=== PATIENT | female | born 1970 | race African-American/Black ===

== ENCOUNTER 2020-07-13 20:22 | Emergency (ER) | payer BC, SELFPAY ==
--- NOTE | ~2020-07-13 | CT_ITS ---
EXAMINATION: CT abdomen pelvis wo con DATE: 07/13/2020 22:11 INDICATION: Right flank pain TECHNIQUE: Computed tomography (CT) of the abdomen and pelvis was performed without intravenous contr ast. Automated exposure control and iterative reconstruction technique were employed. Exam dose: 210 .49 mGy-cm total exam DLP. COMPARISON: None. FINDINGS: The lung bases are clear. Normal heart size. No pericardial or pleural effusion. A hypoattenuating approximately 1.7 cm rounded lesion is suggested at the dome of the liver. Elective repeat CT images with IV contrast material are recommended for further evaluation. The liver otherwi se appears unremarkable. No bile duct dilatation. The gallbladder is present but not as optimally osvaldo luated as it would be with ultrasound examination. Normal splenic size. No pancreatic mass lesion, calcification or ductal dilatation. Unremarkable adrenal glands. Normal caliber of the abdominal aorta. No intraperitoneal or retroperitoneal or pelvic mass lesion or adenopathy or ascites. The urinary bladder is unremarkable. Retroverted uterus. No adnexal mass lesi on is noted. No urinary tract calculus or hydroureteronephrosis is evident. The appendix appears to be normal. No inflammatory changes or abscess are identified. No bowel obstru ction, bowel wall thickening, pneumatosis or intraperitoneal free air. Approximately 9.3 cm sclerotic lesion of the right iliac bone, statistically most likely a bone islan d. Osteoarthritic changes at both hip joints. IMPRESSION: Indeterminate 1.7 cm hepatic dome lesion is suggested. Consider elective repeat CT exami nation with IV contrast material No urinary tract calculus or hydroureteronephrosis The appendix appears normal. Reviewed, dictated and finalized at [facility]. Reviewed, dictated and finalized at [facility]. IMPRESSION: Indeterminate 1.7 cm hepatic dome lesion is suggested. Consider el ective repeat CT examination with IV contrast material No urinary tract calculus or hydroureteronephrosis The appendix appears normal.
[2020-07-13 20:50] VITALS: BP 109/80; PULSE 100; RESP 18; TEMP 36; O2SAT 100
[2020-07-13 21:40] LABS: Add Urine Microscopic? YES; Appearance Urine Clear (Clear); Bilirubin Urine Negative (Negative); Blood Urine 2+ (Negative); Color Urine Yellow (Yellow); Glucose Urine UA Negative (Negative); Ketones Urine Trace mg/dL (Negative); Leukocyte Esterase Ur Trace LEU/UL (Negative); Mucus Urine Rare /lpf; Nitrate Urine Negative (Negative); Protein Urine Negative (Negative); Specific Grav Ur 1.029 (1.001-1.035); Squamous Epithelial Cell Urine Few /hpf (Few); Urobilinogen Urine Negative mg/dL (<2.0); WBC Urine 0-3 /hpf
--- NOTE | 2020-07-13 21:58 | ED.BACK ---
HPI - Back Pain/Injury General Chief Complaint: Back Pain/Injury Stated Complaint: severe back pain; break through bleeding Time Seen by Provider: 07/13/20 21:50 History of Present Illness HPI Narrative: Right flank and lower back pain for the past few weeks. Worse with lying on her right side. Associated with vaginal bleeding and urinary frequency, and hematuria. She recently began hormone therapy for menopause, but then stopped it due to the vaginal bleeding. Related Data Allergies Allergy/AdvReac Type Severity Reaction Status Date / Time Milk Containing Products AdvReac Severe Verified 12/27/16 09:25 soy AdvReac Severe Verified 12/27/16 09:25 Wheat AdvReac Severe Uncoded 12/27/16 09:25 Review of Systems Review of Systems: All systems reviewed & are unremarkable except as noted in HPI and below Constitutional: Constitutional: Denies fever(s) Cardiovascular: Cardiovascular: Denies chest pain Respiratory: Respiratory: Denies cough and Denies dyspnea Gastrointestinal: Gastrointestinal: Denies abdominal pain Genitourinary: Genitourinary: Reports hematuria, Reports nocturia, Denies dysuria and Reports flank pain Musculoskeletal: Musculoskeletal: Reports back pain Neurologic: Denies confusion, Denies numbness and Denies weakness PMFSH Social History Social History Gender identity (if verbalized by the patient): Female Exam Const: General: healthy appearing, no acute distress and alert Orientation/consciousness: patient oriented x3 HENMT: Head: normal to inspection Neck: Neck: normal visual inspection and no lymphadenopathy Chest: Chest palpation & inspection: no tenderness Resp: Effort & Inspection: normal respiratory effort Auscultation: clear to auscultation bilaterally, no rales, no rhonchi and no wheezes Cardio: Jugular venous distension: no JVD Rate: regular rate Rhythm: regular rhythm Heart sounds: no murmurs GI: Inspection: non-distended GI Palp: Yes Soft to palpation and No Tenderness to palpation present (GI) Back/Spine/Pelvis: Thoracic/Lumbar Spine: thoracic and lumbar spine normal to inspection and paraspinal muscle tenderness on the right Skin: General skin exam: normal color Neuro: General: patient oriented x3 and moves all extremities Speech: normal speech Extrem: General: no edema Psych: Appearance: well kempt Affect: normal affect Course Vital Signs Vital signs: Vital Signs Temperature 36.0 C L 07/13/20 20:50 Pulse Rate 100 07/13/20 20:50 Respiratory Rate 18 07/13/20 20:50 Blood Pressure 109/80 07/13/20 20:50 Pulse Oximetry 100 07/13/20 20:50 Temperature 36.0 C L 07/13/20 20:50 Pulse Rate 75 07/13/20 22:47 Respiratory Rate 19 07/13/20 22:47 Blood Pressure 115/70 07/13/20 22:47 Pulse Oximetry 98 07/13/20 22:47 MDM - Back Pain/Injury Medical Records Attestation: I reviewed the patient's medical records. Lab Data Attestation: I reviewed the patient's lab results. Result diagrams: 07/13/20 21:56 07/13/20 22:29 Labs: Lab Results 07/13/20 07/13/20 07/13/20 Range/Units 21:16 21:56 22:29 WBC 7.6 (4.5-10.0) K/mm3 RBC 4.58 (4.2-5.4) M/mm3 Hgb 13.5 (12.0-15.0) g/dL Hct 40.4 (37.0-47.0) % MCV 88.2 (80-100) fl MCH 29.5 (26-34) pg MCHC 33.4 (32-36) g/dl RDW 14.7 H (11.5-14.5) % Plt Count 208 (150-375) k/mm3 MPV 10.7 H (7.4-10.4) fl Immature Gran % (Auto) 0.3 (0-0.5) % Neut % (Auto) 48.5 (45.5-73.1) % Lymph % (Auto) 40.2 (18.3-44.2) % Lucas % (Auto) 5.8 (2.6-8.5) % Eos % (Auto) 4.4 (0-4.4) % Baso % (Auto) 0.8 (0.2-1.2) % Lymph # (Auto) 3.04 (0.9-3.2) K/mm3 Lucas # (Auto) 0.4 (0.1-0.6) K/mm3 Eos # (Auto) 0.3 (0-0.3) K/mm3 Baso # (Auto) 0.1 (0.0-0.1) K/mm3 Abs Immat Gran (auto) 0.02 (0.00-0.031) K/mm3 Absolute Neuts (auto) 3.7 (1.3-6.7) K/m
[2020-07-13 22:14] LABS: Basophils Absolute Auto 0.1 K/mm3 (0.0-0.1); Basophils Percent Auto 0.8 % (0.2-1.2); Eosinophils Absolute Auto 0.3 K/mm3 (0-0.3); Eosinophils Percent Auto 4.4 % (0-4.4); Hematocrit 40.4 % (37.0-47.0); Hemoglobin 13.5 g/dL (12.0-15.0); Immature Granulocyte Absolute 0.02 K/mm3 (0.00-0.031); Immature Granulocyte Percent A 0.3 % (0-0.5); Lymphocytes Absolute Auto 3.04 K/mm3 (0.9-3.2); Lymphocytes Percent Auto 40.2 % (18.3-44.2); Mean Corpuscular HGB Conc 33.4 g/dl (32-36); Mean Corpuscular Hemoglobin 29.5 pg (26-34); Mean Corpuscular Volume 88.2 fl (80-100); Mean Platelet Volume 10.7 fl (7.4-10.4); Monocytes Absolute Auto 0.4 K/mm3 (0.1-0.6); Monocytes Percent Auto 5.8 % (2.6-8.5); Neutrophils Absolute Auto 3.7 K/mm3 (1.3-6.7); Neutrophils Percent Auto 48.5 % (45.5-73.1); Platelet Count Result 208 k/mm3 (150-375); Red Blood Count 4.58 M/mm3 (4.2-5.4); Red Cell Distribution Width 14.7 % (11.5-14.5); White Blood Count 7.6 K/mm3 (4.5-10.0)
[2020-07-13 22:17] VITALS: BP 146/98; PULSE 64; RESP 19; O2SAT 98
[2020-07-13] MEDS: KETOROLAC 30 MG/ML VIAL (*BKC) IV PUSH (22:33)
[2020-07-13] MEDS: METOCLOPRAMIDE HCL INJ 10 MG/2 ML VIAL IV PUSH (22:33)
[2020-07-13] MEDS: SODIUM CHLORIDE 0.9% IV 1,000 ML 999 ML IV CONT (22:34)
[2020-07-13 22:47] VITALS: BP 115/70; PULSE 75; RESP 19; O2SAT 98
[2020-07-13 22:48] LABS: Anion Gap 7 mmol/L (8-16); Blood Urea Nitrogen 20 mg/dL (7-17); Calcium 9.1 mg/dL (8.4-10.2); Carbon Dioxide 24 mmol/L (22-30); Chloride 107 mmol/L (98-107); Estimated CRCL calculation 52 ml/min; Estimated Glomerular Filt Rate > 60; Glucose 95 mg/dL (65-105); Potassium 4.1 mmol/L (3.4-5.0); Sodium 138 mmol/L (137-145)
[2020-07-14 00:18] VITALS: BP 118/74; PULSE 88; RESP 19; TEMP 36.8; O2SAT 98
== END 2020-07-14 00:19 | disposition home or self-care (01) ==
PROVIDERS: Emergency Provider Emergency Medicine; PCP Physician Assistant
DX: M54.41 Lumbago with sciatica, right side (principal); N95.0 Postmenopausal bleeding; R51 Headache
CPT/HCPCS: 36415; 74176; 80048; 81001; 81025; 85025; 96361; 96374; 96375; 99284; J0131; J1885; J2765; J7030

== ENCOUNTER 2020-12-15 08:21 | Emergency (ER) | payer OTHER, BC, SELFPAY ==
--- NOTE | ~2020-12-15 | XR_ITS ---
XR wrist RT min 3V DATE: 12/15/2020 08:59 INDICATION: Fall. Right wrist swelling. TECHNIQUE: 4 views COMPARISON: None FINDINGS: No fracture or dislocation, periosteal reaction or bone destruction. Joint spaces are prese rved. There is minimal osteoarthritic change at the first carpometacarpal joint IMPRESSION: Minimal osteoarthritis at first carpometacarpal joint Reviewed, dictated and finalized at [facility]. TAL ADVERTISING ANALYST
--- NOTE | ~2020-12-15 | XR_ITS ---
XR knee LT min 4V DATE: 12/15/2020 08:59 INDICATION: Fall. Left knee pain TECHNIQUE: 4 views COMPARISON: None FINDINGS: Patellar enthesopathy at the insertion of the patellar and quadriceps tendons. Mild loss of height of medial compartment joint space. No fracture or dislocation or joint effusion. No periosteal reaction or bone destruction. No radiopaq ue intra-articular loose body or chondrocalcinosis. IMPRESSION: Mild loss of height of medial compartment joint space Patellar enthesopathy Reviewed, dictated and finalized at [facility]. UP OPERATOR
--- NOTE | ~2020-12-15 | XR_ITS ---
XR wrist LT min 3V DATE: 12/15/2020 08:59 INDICATION: Fall. Left wrist injury, swelling TECHNIQUE: 4 views COMPARISON: December 27, 2016 left wrist FINDINGS: No fracture or dislocation, periosteal reaction or bone destruction. Joint spaces are prese rved. There is mild spurring at the first carpometacarpal joint. No chondrocalcinosis or erosive gore ge. IMPRESSION: Mild osteoarthritis at first carpometacarpal joint Reviewed, dictated and finalized at location [facility]. RAL HOME MANAGER
--- NOTE | ~2020-12-15 | XR_ITS ---
XR knee RT min 4V DATE: 12/15/2020 08:59 INDICATION: Fall. Right knee injury, pain TECHNIQUE: 4 views COMPARISON: None FINDINGS: There is superior pole patellar enthesopathy. Mild loss of height of medial compartment joint space. No fracture or dislocation or joint effusion. No periosteal reaction or bone destruction. No radiopaq ue intra-articular loose body or chondrocalcinosis. IMPRESSION: Mild loss of height of medial compartment Patellar enthesopathy Reviewed, dictated and finalized at location [facility]. UCTION CLOTH CUTTER
[2020-12-15 08:27] VITALS: BP 140/95; PULSE 83; RESP 16; TEMP 35.7; O2SAT 100
--- NOTE | 2020-12-15 08:45 | PC.NURSE ---
Pt to xray at this time.
--- NOTE | 2020-12-15 10:29 | ED.GENADULT ---
HPI - General Adult General Chief complaint: Fall Stated complaint: Fall, Bilateral Wrist Pain Time Seen by Provider: 12/15/20 09:05 Source: patient Mode of arrival: ambulatory Limitations: no limitations History of Present Illness HPI narrative: Patient is a 50-year-old female who presents to emergency department for evaluation of injury to the bilateral wrists and knees patient was ambulating when she tripped over the threshold of the door falling forward patient has had aching pain of the bilateral wrists and knees worse with activity and movement presents in no distress has not had anything for symptoms denies other complaints at this time Related Data Home Medications Medication Instructions Recorded Confirmed albuterol mcg INHALATION 12/15/20 Allergies Allergy/AdvReac Type Severity Reaction Status Date / Time Milk Containing Products AdvReac Severe Diarrhea Verified 12/15/20 08:33 soy AdvReac Severe Itching Verified 12/15/20 08:33 Wheat AdvReac Severe Itching Uncoded 12/15/20 08:33 Review of Systems Review of Systems: All systems reviewed & are unremarkable except as noted in HPI and below PMFSH Past Medical History Medical History (Updated 12/15/20 @ 10:33 by Ghulam Fermin PA-C) Asthma Social History Social History (Updated 12/15/20 @ 10:30 by Ghulam Fermin PA-C) Smoking status: Never smoker Gender identity (if verbalized by the patient): Female Exam Narrative: Exam Narrative: GENERAL: Well-appearing, well-nourished, and in no acute distress. HEAD: Normocephalic, atraumatic. EYES: PERRLA and EOMI. ENT: Nares clear, no rhinorrhea or epistaxis. Mucous membranes moist. CHEST: Clear to auscultation. No respiratory distress. No wheezes rales or rhonchi HEART: Regular rate and rhythm. No murmur heard. EXTREMITIES: Normal range of motion. No edema. Tenderness of the bilateral wrists radial aspect tender to the anterior knees with abrasion and bruising of the anterior right knee SKIN: Warm, dry, no rash. NEURO: No focal deficits. Alert and oriented x3. Cranial nerves II through XII grossly intact. Neurovascularly intact PSYCH: Normal mood and affect. Course Course Emergency Course: Patient in the room at this time aware of case findings treatment plan and diagnosis agreeing to follow-up as directed or to return if symptoms worsen or concerns Vital Signs Vital signs: Vital Signs Temperature 96.2 F L 12/15/20 08:27 Pulse Rate 83 12/15/20 08:27 Respiratory Rate 16 12/15/20 08:27 Blood Pressure 140/95 H 12/15/20 08:27 Pulse Oximetry 100 12/15/20 08:27 Temperature 96.2 F L 12/15/20 08:27 Pulse Rate 83 12/15/20 08:27 Respiratory Rate 16 12/15/20 08:27 Blood Pressure 140/95 H 12/15/20 08:27 Pulse Oximetry 100 12/15/20 08:27 Medical Decision Making MDM Narrative Medical decision making narrative: Patients injury or pain is consistent with musculoskeletal etiology. No signs of neurological or vascular compromise on exam. Compartments and tisues are soft without signs of compartment syndrome. Pain is felt appropriate for further evaluation on an outpatient basis. Vital Signs Vital Signs: Vital Signs Temperature 96.2 F L 12/15/20 08:27 Pulse Rate 83 12/15/20 08:27 Respiratory Rate 16 12/15/20 08:27 Blood Pressure 140/95 H 12/15/20 08:27 Pulse Oximetry 100 12/15/20 08:27 Temperature 96.2 F L 12/15/20 08:27 Pulse Rate 83 12/15/20 08:27 Respiratory Rate 16 12/15/20 08:27 Blood Pressure 140/95 H 12/15/20 08:27 Pulse Oximetry 100 12/15/20 08:27 Imaging Data Radiologist's impression: ITS Impressions Wrist X-Ray 12/15/20 09:04 IMPRESSION: Minimal osteoarthritis at first carpometacarpal joint Knee X-Ray 12/15/20 09:05 IMPRESSION: Mild loss of height of medial compartment joint space Patellar enthesopathy Discharge Plan Discharge Clinical Impression: Injury of left wrist, Injury of rig
[2020-12-15 10:53] VITALS: BP 118/75; PULSE 79; RESP 16; O2SAT 100
== END 2020-12-15 10:57 | disposition home or self-care (01) ==
PROVIDERS: Emergency Provider Emergency Medicine; PCP Physician Assistant
DX: S69.92XA Unspecified injury of left wrist, hand and finger(s), initial encounter (principal); S69.91XA Unspecified injury of right wrist, hand and finger(s), initial encounter; S89.92XA Unspecified injury of left lower leg, initial encounter; S89.91XA Unspecified injury of right lower leg, initial encounter; W01.0XXA Fall on same level from slipping, tripping and stumbling without subsequent striking against object, initial encounter
CPT/HCPCS: 73110; 73564; 99284

== ENCOUNTER 2021-05-06 06:27 | Emergency (ER) | payer BC, SELFPAY ==
--- NOTE | ~2021-05-06 | CT_ITS ---
EXAMINATION: CT BRAIN W/O DATE: 05/06/2021 08:55 INDICATION: Headache TECHNIQUE: Computed tomography (CT) of the head was performed without intravenous contrast. The dose- length product was 605.33 mGy-cm. Automated exposure control and iterative reconstruction technique w ere employed. COMPARISON: No prior studies for comparison. FINDINGS: Normal brain parenchymal volume for age. Normal spencer-white differentiation. No acute intrac ranial hemorrhage, infarction, mass or mass effect. No ventriculomegaly or midline shift. Midline sagittal images demonstrate a normal corpus callosum, c raniovertebral junction and sella turcica. Basilar cisterns are patent. Mild mucosal thickening of the ethmoid sinuses. IMPRESSION: 1. No acute intracranial abnormality. Reviewed, dictated and finalized at location [facility].
--- NOTE | ~2021-05-06 | CT_ITS ---
EXAMINATION: CT abdomen pelvis w con DATE: 05/06/2021 08:56 INDICATION: Abdominal pain TECHNIQUE: Computed tomography (CT) of the abdomen and pelvis was performed with 100 cc Omnipaque 350 intravenous contrast. The dose-length product was 384.76 mGy-cm. Automated exposure control and iter ative reconstruction technique were employed. COMPARISON: CT dated 07/13/2020 FINDINGS: No significant change to hypodense 1.9 cm lesion right hepatic lobe near the dome of the li bhavik, most likely benign hemangioma in the absence of known malignancy. There is peripheral nodular en hancement. Lung bases are unremarkable. Heart size normal. No significant pleural or pericardial effu migue. No significant atherosclerosis. The spleen, pancreas, adrenal glands and kidneys are unremarkable. Gallbladder is present. Nonobstruc tive bowel gas pattern. Gallbladder is present. No free air or free fluid. There are degenerative aubrey nges of the hips. Small bone island in the right ilium. IMPRESSION: 1. No acute abdominal abnormality identified. 2: Stable hypovascular 1.9 cm liver lesion right hepatic lobe, most likely benign hemangioma in the absence of known malignancy. Reviewed, dictated and finalized at location [facility]. IMPRESSION: 1. No acute abdominal abnormality identified. 2: Stable hypovascular 1.9 cm liver lesion right hepatic lobe, most likely chris ign hemangioma in the absence of known malignancy.
--- NOTE | ~2021-05-06 | XR_ITS ---
EXAMINATION: XR chest 2V 05/06/2021 08:47 INDICATION: Right chest pain and shortness of breath. History of mitral valve prolapse. PROCEDURE: 2 view chest COMPARISON: No prior studies for comparison. FINDINGS: The lungs are clear. The cardiomediastinal silhouette is within normal limits. There are no pleural effusions. There is no pneumothorax suspected. IMPRESSION: 1: NO ACUTE CARDIOPULMONARY DISEASE. Reviewed, dictated and finalized at location [facility].
[2021-05-06 06:40] VITALS: BP 150/84; PULSE 55; RESP 20; TEMP 36.4; O2SAT 100
--- NOTE | 2021-05-06 07:20 | ED.FEMALEGU ---
HPI - Female Genitourinary General Chief complaint: Urogenital-Female Stated complaint: Right flank pain, urinary frequency, SEAMAN Time Seen by Provider: 05/06/21 07:20 Source: patient Mode of arrival: ambulatory Limitations: no limitations History of Present Illness HPI Narrative: Patient is a 50-year-old female with a history of prediabetes, borderline hypertension who presents for evaluation of multiple complaints. Patient is reporting mild, aching headache over the past several months, also reporting right-sided abdominal pain and fullness in her right abdomen. She states she feels as if her right lower extremity is swollen but denies redness or pain. No history of coagulopathy. No recent long car or air travel. Patient states that symptoms have been daily over the past 6 months, states that she has not seen a primary care physician regarding this. 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 She denies any recent fall or trauma. No nausea or vomiting. No fever or chills. No rhinorrhea or congestion. Pain is exacerbated with movement. No history of cancer. Related Data Home Medications Medication Instructions Recorded Confirmed albuterol mcg INHALATION 12/15/20 Allergies Allergy/AdvReac Type Severity Reaction Status Date / Time Milk Containing Products AdvReac Severe Diarrhea Verified 12/15/20 08:33 soy AdvReac Severe Itching Verified 12/15/20 08:33 Wheat AdvReac Severe Itching Uncoded 12/15/20 08:33 Review of Systems Review of Systems: Narrative: CONSTITUTIONAL: Denies fever, chills, or sweats. EYES: Denies visual changes, redness, or discharge. ENT: Denies rhinorrhea, congestion, sore throat, or otalgia. CARDIOVASCULAR: Denies chest pain, palpitations, or edema. RESPIRATORY: Denies cough or dyspnea. GASTROINTESTINAL: Reports right-sided abdominal pain and fullness without nausea, vomiting or diarrhea GENITOURINARY: Reports urinary frequency and urgency denies hematuria SKIN: Denies rash or itching. MUSCULOSKELETAL: Denies back pain, joint pain, or myalgia. NEUROLOGIC: Reports mild headache without weakness or numbness PSYCHIATRIC: Denies anxiety or depression. [facility] Past Medical History Medical History Asthma Social History Social History Smoking status: Never smoker Gender identity (if verbalized by the patient): Female Exam Narrative: Exam Narrative: GENERAL: Awake, alert, conversant HEAD: Normocephalic, atraumatic. EYES: PERRLA and EOMI. ENT: Nares clear, no rhinorrhea or epistaxis. Mucous membranes moist. NECK: Supple. CHEST: No respiratory distress, breathing even and non labored HEART: Regular rate, sinus rhythm ABDOMEN:Non distended, non tender, pain is not reproducible on exam EXTREMITIES: Normal range of motion. No edema. No calf tenderness bilaterally. SKIN: Warm, dry, no rash. NEURO:No focal deficits. Alert and oriented x3 Course Vital Signs Vital signs: Vital Signs Temperature 36.4 C 05/06/21 06:40 Pulse Rate 55 L 05/06/21 06:40 Respiratory Rate 20 05/06/21 06:40 Blood Pressure 150/84 H 05/06/21 06:40 Pulse Oximetry 100 05/06/21 06:40 Temperature 36.4 C 05/06/21 06:40 Pulse Rate 55 L 05/06/21 06:40 Respiratory Rate 20 05/06/21 06:40 Blood Pressure 150/84 H 05/06/21 06:40 Pulse Oximetry 100 05/06/21 06:40 MDM - Female Genitourinary MDM Narrative Medical decision making narrative: Patient presenting for evaluation of multiple complaints including headache, right-sided abdominal pain, leg pain. At the time of assessment, ABCs are intact and vital signs are stable. She is mildly bradycardic but blood pressure is normal, no altered mentation, not lightheaded or dizzy. Exam is very reassuring. No mass found on exam. No reproducible abdominal pain or chest wall pain. Lungs are c
--- NOTE | 2021-05-06 08:11 | ECG_ITS ---
Measurements Intervals [place] Rate: 52 P: 15 NM: 176 QRS: 48 QRSD: 85 T: 53 QT: 465 QTc: 435 Interpretive Statements SINUS BRADYCARDIA BORDERLINE ECG Electronically Signed On 05-06-2021 9:46:06 CDT by Eusebio Randall D.O.
[2021-05-06 08:16] LABS: Basophils Absolute Auto 0.1 K/mm3 (0.0-0.1); Basophils Percent Auto 1.1 % (0.2-1.2); Eosinophils Absolute Auto 0.3 K/mm3 (0-0.3); Eosinophils Percent Auto 6.6 % (0-4.4); Hematocrit 38.3 % (37.0-47.0); Hemoglobin 12.2 g/dL (12.0-15.0); Immature Granulocyte Absolute 0.01 K/mm3 (0.00-0.031); Immature Granulocyte Percent A 0.2 % (0-0.5); Lymphocytes Absolute Auto 1.52 K/mm3 (0.9-3.2); Lymphocytes Percent Auto 33.6 % (18.3-44.2); Mean Corpuscular HGB Conc 31.9 g/dl (32-36); Mean Corpuscular Hemoglobin 28.8 pg (26-34); Mean Corpuscular Volume 90.3 fl (80-100); Mean Platelet Volume 10.4 fl (7.4-10.4); Monocytes Absolute Auto 0.4 K/mm3 (0.1-0.6); Monocytes Percent Auto 9.5 % (2.6-8.5); Neutrophils Absolute Auto 2.2 K/mm3 (1.3-6.7); Platelet Count Result 190 k/mm3 (150-375); Red Blood Count 4.24 M/mm3 (4.2-5.4); White Blood Count 4.5 K/mm3 (4.5-10.0)
[2021-05-06 08:18] LABS: Add Urine Microscopic? NO; Appearance Urine Clear (Clear); Bilirubin Urine Negative (Negative); Blood Urine Negative (Negative); Color Urine Straw (Yellow); Glucose Urine UA Negative (Negative); Ketones Urine Negative (Negative); Leukocyte Esterase Ur Negative LEU/UL (Negative); Nitrate Urine Negative (Negative); Protein Urine Negative (Negative); Specific Grav Ur 1.006 (1.001-1.035); Urobilinogen Urine Negative mg/dL (<2.0)
[2021-05-06 08:25] LABS: Anion Gap 9 mmol/L (8-16); Blood Urea Nitrogen 12 mg/dL (7-17); Calcium 9.6 mg/dL (8.4-10.2); Carbon Dioxide 23 mmol/L (22-30); Chloride 107 mmol/L (98-107); Estimated CRCL calculation 58 ml/min; Estimated Glomerular Filt Rate > 60; Glucose 83 mg/dL (65-105); Potassium 4.2 mmol/L (3.4-5.0); Sodium 139 mmol/L (137-145)
[2021-05-06] MEDS: SODIUM CHLORIDE 0.9% IV 1,000 ML 999 ML IV CONT (09:06)
[2021-05-06] MEDS: KETOROLAC 15 MG/ML VIAL (*BKC) IV PUSH (09:06)
[2021-05-06] MEDS: ACETAMINOPHEN 500 MG TABLET 1000 MG PO (09:06)
[2021-05-06 09:43] LABS: Troponin I < 0.012 ng/mL (0.000-0.034)
--- NOTE | 2021-05-06 10:31 | PC.NURSE ---
PT refused to take Tylenol.
[2021-05-06 10:32] VITALS: BP 105/92; PULSE 87; RESP 18; O2SAT 100
== END 2021-05-06 10:34 | disposition home or self-care (01) ==
PROVIDERS: Emergency Provider Emergency Medicine; PCP Physician Assistant
DX: R10.84 Generalized abdominal pain (principal); R00.1 Bradycardia, unspecified; J45.909 Unspecified asthma, uncomplicated
CPT/HCPCS: 36415; 70450; 71046; 74177; 80048; 81003; 84443; 84484; 85025; 93005; 96361; 96374; 99284; A9270; J1885; J7030; Q9967